=== PATIENT | female | born 2000 | race Caucasian/White ===

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

== ENCOUNTER 2018-01-10 00:46 | Outpatient (CLI) | payer MEDICAID ==
[2018-01-10 02:22] LABS: AMNISURE (ROM) NEGATIVE (NEGATIVE)
[2018-01-10 02:36] LABS: APPEARANCE,URINE TURBID; BILIRUBIN,URINE NEGATIVE (NEGATIVE); COLOR,URINE YELLOW; GLUCOSE, URINE 50 mg/dL (NEGATIVE); KETONES,URINE TRACE mg/dL (NEGATIVE); LEUKOCYTE ESTERASE,URINE NEGATIVE (NEGATIVE); NITRITE,URINE NEGATIVE (NEGATIVE); PROTEIN,URINE NEGATIVE (NEGATIVE); URINE SPECIFIC GRAVITY 1.032; UROBILINOGEN,URINE NEGATIVE mg/dL (<2.0)
[2018-01-10 02:55] LABS: URINE AMPHETAMINES SCREEN NEGATIVE; URINE BARBITURATES SCREEN NEGATIVE; URINE BENZODIAZEPINES SCREEN NEGATIVE; URINE COCAINE SCREEN NEGATIVE; URINE MARIJUANA (THC) SCREEN NEGATIVE; URINE METHADONE SCREEN NEGATIVE; URINE PHENCYCLIDINE SCREEN NEGATIVE
== END 2018-01-10 02:43 | disposition home or self-care (01) ==
LOC: LC 00:46
PROVIDERS: ATTEND Obstetrics & Gynecology
PROC: 4A1HXCZ Monitoring of Products of Conception, Cardiac Rate, External Approach (ICD-10-PCS; principal; 2018-01-10)
DX: Z36.89 Encounter for other specified antenatal screening (principal)
CPT/HCPCS: 80307; 81001; 84112

== ENCOUNTER 2018-04-11 10:16 | Outpatient (CLI) | payer MEDICAID ==
--- NOTE | 2018-04-11 11:20 | Non Stress Test Report ---
Non Stress Test Datetime Report Generated by CPN: 04/11/2018 11:19 DEMOGRAPHIC EGA NST: 36.4 INDICATION Indication for Study: Ordered by Provider MONITORING Monitor Explained: Monitor Explained; Test Explained; Patient Verbalized Understanding Time on Monitor: 04/11/2018 10:36 Time off Monitor: 04/11/2018 11:15 NST Duration: 39 NST INTERVENTIONS NST Interventions: PO Hydration Physician Notified NST: A. Bhagat CNM BABY A: [id number] BABY A Movement : Present Contraction Frequency : irritability FHR Baseline : 140 Accelerations : 15X15 Decelerations : None Variability : Moderate 6-25bpm NST Review: Meets Criteria for Reactive NST NST Review and Verified By : MARGIE Lopez Results: Reactive NST REPORT Report Trigger: Send Report
== END 2018-04-11 11:32 | disposition home or self-care (01) ==
LOC: LC 10:16
PROVIDERS: ATTEND Obstetrics & Gynecology
PROC: 4A1HXCZ Monitoring of Products of Conception, Cardiac Rate, External Approach (ICD-10-PCS; principal; 2018-04-11)
DX: O47.03 False labor before 37 completed weeks of gestation, third trimester (principal); Z3A.36 36 weeks gestation of pregnancy
CPT/HCPCS: 59025

== ENCOUNTER 2018-04-25 11:38 | Inpatient (IN) | payer MEDICAID ==
[2018-04-25 12:38] LABS: APPEARANCE,URINE SLIGHTLY-CLOUDY; BILIRUBIN,URINE NEGATIVE (NEGATIVE); COLOR,URINE YELLOW; GLUCOSE, URINE NEGATIVE (NEGATIVE); KETONES,URINE NEGATIVE (NEGATIVE); LEUKOCYTE ESTERASE,URINE MODERATE (NEGATIVE); NITRITE,URINE NEGATIVE (NEGATIVE); PROTEIN,URINE NEGATIVE (NEGATIVE); URINE SPECIFIC GRAVITY 1.009; UROBILINOGEN,URINE NEGATIVE mg/dL (<2.0)
[2018-04-25 13:22] LABS: URINE AMPHETAMINES SCREEN NEGATIVE; URINE BARBITURATES SCREEN NEGATIVE; URINE BENZODIAZEPINES SCREEN NEGATIVE; URINE COCAINE SCREEN NEGATIVE; URINE MARIJUANA (THC) SCREEN NEGATIVE; URINE METHADONE SCREEN NEGATIVE; URINE PHENCYCLIDINE SCREEN NEGATIVE
[2018-04-25] MEDS ORDERED: RINGERS SOLUTION,LACTATED 300 ML IV ONE (14:33)
[2018-04-25] MEDS ORDERED: OXYTOCIN/NORMAL SALINE 20 UNIT/1,000 ML RTUINJ IV PRN (14:33)
--- NOTE | 2018-04-25 15:11 | Admission Physical ---
Datetime Report Generated by CPN: 04/25/2018 15:10 CURRENT ADMISSION Hx Assessment: The History has been Reviewed and is Current Chief Complaint: Sent from OB Office for Evaluation and Treatment - Please Specify Indication for Induction: Oligohydramnios Admit Impression : Term, Intrauterine Admit Plan: Admit to Unit; Initiate Labor Induction Protocol ALLERGIES Medication Allergies: No Medication Allergies: No Known Allergies (08/07/2016) Latex: No Latex Allergies OBSTETRICAL HISTORY EDC: 05/05/2018 00:00 : 1 Para: 0 Term: 0 : 0 SAB: 0 IAB: 0 Ectopic: 0 Livin Cesareans: 0 VBACs: 0 Multiple Births: 0 Gestational Diabetes: No Rh Sensitization: No Incompetent Cervix: No MARTIN: No Infertility: No ART Treatment: No Uterine Anomaly: No IUGR: No Hx Previous C/S: No Macrosomia: No Hx Loss/Stillborn: No PIH: No Hx : No Placenta Previa/Abruption: No Depression/PP Depression: No PTL/PROM: No Post Hemorrhage: No Current Procedures: Ultrasound; NST Obstetrical History Comments: G1-Current SEE RECORDS Alcohol: No Marijuana : No Cocaine: No Other Illicit Drugs: No Cigarettes: Never Smoker. 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 Heart Disease: No Hosp/Surgery: No Autoimmune Disorder: No Anesthetic Complications: No Kidney Disease: No Abnormal Pap Smear: No Neuro/Epilepsy: No Psychiatric Disorders: No Other Medical Diseases: No Hepatitis/Liver Disease: No Significant Family History: No Varicosities/Phlebitis: No Trauma/Violence : No Thyroid Dysfunction: No INFECTIOUS HISTORY Gonorrhea: No Genital Herpes: No Chlamydia: Yes Tuberculosis: No Syphilis: No Hepatitis: No HIV/AIDS Exposure: No Rash or Viral Illness: No HPV: No Infectious History Comments: Hx Chlamydia 10/2017 PHYSICAL EXAM General: Normal Heart: Normal Lungs: Normal Extremities: Normal DTRs: Normal Vital Signs: Reviewed; Within Normal Limits MEMBRANES Membranes: Intact FETUS A EGA: 38.4 Monitoring: External US FHR- Baseline: 125 Variability: Moderate 6-25bpm Accelerations: 15X15 Decelerations: None FHR Category: Category I Presentation: Vertex Admit Comment: 17yo G1 @ 38w4d sent from office earlier today with new finding of oligohydramnios. Neg actim prom on arrival and disccused with Dr. Art who is the [employer] personnel and payroll technician today. Plan to admit and deliver per attending physician's order. Pt is O pos, RI, positive GBS, with significant hx of obesity (normal early 1hr, elevated 3rd trim 1hr with normal 3hr gtt) tobacco use and positive chlamydia at [facility] with neg LUÍS. No concerns today. Will provide lunch and then start induction of labor with whiting bulb. Pt. and asked questions and verbalized understanding. PLANS FOR LABOR AND DELIVERY Labor and Delivery: None Pain Management: Natural Feeding Preference: Breast Benefit of Breast Feed Discussed: Yes Circumcision: N/A INFORMED CONSENT Assignment: Wanda Desouza MD Signature: with User ID: [email or web address] : with User ID: [email or web address]
[2018-04-25] MEDS: RINGERS SOLUTION,LACTATED 1,000 ML IV PRN ×2 (15:30→22:08)
--- NOTE | 2018-04-25 16:00 | L&D Progress Notes ---
PROGRESS NOTES Datetime Report Generated by CPN: 04/25/2018 16:00 PROGRESS NOTE Impression Other: IUP @ 38w4d Procedures: Sterile Vag Exam Procedures- Other: cooks catheter placement Plan: Continue Present Management; Augmentation Informed Consent Obtained: Vaginal Delivery; Induction of Labor; Risks, Benefits and Alternatives Discussed Vital Signs : Reviewed; Within Normal Limits Comment: S: comfortable, no questions regarding plan of care at this time O:VSS, cervix as stated A:IUP @ 38w4d IOL secondary to oligo- cook's catheter inserted without difficulty, pt. tolerated well P: continue IOL, will start slow dose pit after shower and light snack. Dr. Art in house and agreeable to plan of care VAGINAL EXAM Dilatation: 2 Effacement: 70 Station: -1 Contractions: irreg MEMBRANES Membranes: Intact FETUS A FHR - Baseline: 120 Monitoring: External US Variability: Moderate 6-25bpm Accelerations: 15X15 Decelerations: None FHR Category: Category I Presentation: Vertex SIGNATURE SIGNATURE: [id number];[id number];[id number] SIGNATURE: [id number];[id number] SIGNATURE: [id number] Assignment: Wanda Desouza MD Signature: with User ID: [email or web address] : with User ID: [email or web address]
[2018-04-25] MEDS ORDERED: PROMETHAZINE HCL INJ 25 MG/1 ML VIAL ONE (16:46)
[2018-04-25] MEDS ORDERED: NALBUPHINE HCL INJ 10 MG/1 ML AMPULE ONE (16:46)
[2018-04-25] MEDS ORDERED: NALBUPHINE HCL INJ 10 MG/1 ML AMPULE IV ONE (16:50)
[2018-04-25] MEDS ORDERED: PROMETHAZINE HCL INJ 25 MG/1 ML VIAL IV ONE (16:50)
[2018-04-25] MEDS ORDERED: PENICILLIN G POTASSIUM 5,000,000 UNIT in DEXTROSE 5%-WATER 100 ML IV ONE (16:52)
[2018-04-25] MEDS ORDERED: OXYTOCIN/NORMAL SALINE 0 UNIT/0 ML RTUINJ ONE (17:14)
[2018-04-25] MEDS ORDERED: PENICILLIN G-K 5 MILLION UNIT VIAL ONE ×2 (17:15→20:57)
[2018-04-25 17:42] LABS: ABSOLUTE MONOCYTES (AUTO) 0.6 10^3/uL (0.1-1.4); ABSOLUTE NEUT (AUTO) 8.1 10^3/uL (1.7-8.2); BASOPHILS % (AUTO) 0.3 % (0-2); EOSINOPHILS % (AUTO) 0.4 % (0-6); HEMATOCRIT 23.6 % (36.0-47.0); LYMPHOCYTES % (AUTO) 10.2 % (13-45); MEAN CORPUSCULAR VOLUME 82 fl (80-97); MONOCYTES % (AUTO) 6.4 % (3-13); PLATELET COUNT 135 10^3/uL (150-450); RED BLOOD COUNT 2.89 10^6/uL (3.72-5.28); RED CELL DISTRIBUTION WIDTH 13.7 % (11.5-14.0); SEGMENTED NEUTROPHILS % (AUTO) 82.7 % (42-78); TOTAL CELLS COUNTED % (AUTO) 100 %; WHITE BLOOD COUNT 9.8 10^3/uL (4.0-10.5)
[2018-04-25 17:43] LABS: HEMOGLOBIN 7.8 g/dL (12.0-15.5)
[2018-04-25] MEDS ORDERED: MISOPROSTOL 0.2 MG TABLET ONE (20:44)
[2018-04-25] MEDS ORDERED: EPHEDRINE SULFATE INJ 50 MG/1 ML AMPULE ONE (20:45)
[2018-04-25] MEDS ORDERED: FENTANYL/BUPIVACAINE/NS/PF 300 MCG/150 ML RTUINJ EPI ONE (20:45)
[2018-04-25] MEDS ORDERED: OXYTOCIN/NORMAL SALINE 20 UNIT/1,000 ML RTUINJ ONE (20:45)
[2018-04-25] MEDS ORDERED: LIDOCAINE 1% INJ-PF (10 MG/ML) 30 ML SDV ONE (20:45)
[2018-04-25] MEDS ORDERED: BUPIVACAINE HCL 0.5 % INJ/PF 30 ML SDV ONE (20:46)
--- NOTE | 2018-04-25 21:30 | L&D Progress Notes ---
PROGRESS NOTES Datetime Report Generated by CPN: 04/25/2018 21:30 PROGRESS NOTE Impression: Normal Progression of Labor Procedures: Sterile Vag Exam Plan: Continue Present Management; Anticipate Vaginal Delivery Informed Consent Obtained: Vaginal Delivery; Induction of Labor Vital Signs : Reviewed Comment: Stefan's Catheter fell out a few minutes ago. Pt not checked yet and very uncomfortable (catheter usually falls out at approx 5 cm). Sitting on ball. Pt is requesting an epidural VAGINAL EXAM Dilatation: 5 CM Contractions: IRREGULAR FETUS A FHR - Baseline: 150s Monitoring: External US Variability: Moderate 6-25bpm Accelerations: Absent Decelerations: None FHR Category: Category I FHR Comments: REACTIVE STRIP A FEW MINUTES PRIOR : 38.4 FETUS C SIGNATURE: [id number];[id number];[id number] Signature: with User ID: [email or web address]
[2018-04-25] MEDS: PENICILLIN G POTASSIUM 2,500,000 UNIT in DEXTROSE 5%-WATER 50 ML IV SCH (22:08)
--- NOTE | 2018-04-25 22:27 | L&D Progress Notes ---
PROGRESS NOTES Datetime Report Generated by CPN: 04/25/2018 22:27 PROGRESS NOTE Impression: Normal Progression of Labor Procedures: Sterile Speculum Exam Plan: Continue Present Management; Anticipate Vaginal Delivery Informed Consent Obtained: Vaginal Delivery Vital Signs : Reviewed Vital Signs Comments: Temp 99.4 VAGINAL EXAM Contractions: 2-3 min FETUS A FHR - Baseline: 160s Monitoring: External US Accelerations: 15X15 Decelerations: None : 38.4 FETUS C SIGNATURE: [id number];[id number];[id number] Signature: with User ID: [email or web address]
[2018-04-26] MEDS ORDERED: PENICILLIN G-K 5 MILLION UNIT VIAL ONE (01:35)
[2018-04-26] MEDS ORDERED: BUPIVACAINE HCL 0.5 % INJ/PF 30 ML SDV ONE (02:09)
[2018-04-26] MEDS ORDERED: AZITHROMYCIN INJ 500 MG VIAL IV ONE ×2 (04:06→04:32)
[2018-04-26] MEDS ORDERED: ACETAMINOPHEN 325 MG TABLET ONE (04:06)
[2018-04-26] MEDS ORDERED: ACETAMINOPHEN 325 MG TABLET PO ONE (04:32)
[2018-04-26] MEDS ORDERED: METHYLERGONOVINE MALEATE INJ/PF 0.2 MG/1 ML AMPULE ONE (05:41)
[2018-04-26] MEDS ORDERED: MEASLES,MUMPS&RUBELLA VACC/PF 0.5 ML VIAL SUBCUT PRN (06:24)
[2018-04-26] MEDS ORDERED: OXYTOCIN/NORMAL SALINE 20 UNIT/1,000 ML RTUINJ IV PRN (06:24)
[2018-04-26] MEDS ORDERED: ZOLPIDEM TARTRATE 5 MG TABLET PO PRN (06:24)
[2018-04-26] MEDS ORDERED: DIBUCAINE 1% OINTMENT 28 GM TP PRN (06:24)
[2018-04-26] MEDS ORDERED: ACETAMINOPHEN WITH CODEINE #3 TABLET PO PRN ×2 (06:24)
[2018-04-26] MEDS ORDERED: BENZOCAINE/MENTHOL AEROSOL SPRAY 56 ML TOP PRN (06:24)
[2018-04-26] MEDS ORDERED: DIPH/PERTUSS(ACELL)/TETANUS VAC/PF 0.5 ML SYR (>=10YO) IM PRN (06:24)
[2018-04-26] MEDS ORDERED: IBUPROFEN 800 MG TABLET PO ONE (06:45)
[2018-04-26] MEDS: PENICILLIN G POTASSIUM 2,500,000 UNIT in DEXTROSE 5%-WATER 50 ML IV SCH ×2 (07:54→07:55)
--- NOTE | 2018-04-26 09:07 | PDOC PROGRESS REPORT ---
Subjective-OB Progress Note for:: 04/26/18 Subjective: Just got back in room from labor and delivery, OOB to BR, tired but feeling good Physical Exam (OB) Vital Signs: Temp Pulse Resp BP Pulse Ox 99.9 F 126 H 22 138/86 H 98 04/26/18 08:04 04/26/18 08:04 04/26/18 08:04 04/26/18 08:04 04/26/18 08:04 Intake & Output 04/25/18 04/26/18 04/27/18 06:59 06:59 06:59 Intake Total 829 1150 Balance 829 1150 Weight 99.6 kg - Lochia Lochia Amount: Scant < 10 ml Lochia Color: Rubra/Red - Abdomen Description: Tender, Soft, Round Hernia Present: No Fundal Description: Firm, Midline Fundal Height: u/u - u/2 Objective-Diagnostic Laboratory: 04/25/18 17:16 04/25/18 04/25/18 04/25/18 12:15 17:16 17:16 WBC 9.8 RBC 2.89 L Hgb 7.8 L Hct 23.6 L MCV 82 MCH 27.0 MCHC 33.0 RDW 13.7 Plt Count 135 L Seg Neutrophils % 82.7 H Lymphocytes % 10.2 L Monocytes % 6.4 Eosinophils % 0.4 Basophils % 0.3 Absolute Neutrophils 8.1 Absolute Lymphocytes 1.0 Absolute Monocytes 0.6 Absolute Eosinophils 0.0 Absolute Basophils 0.0 Carbonic Acid HCO3/H2CO3 Ratio ABG pH ABG pCO2 ABG pO2 ABG HCO3 ABG O2 Saturation ABG Base Excess FiO2 Urine Color YELLOW Urine Appearance SLIGHTLY-CLOUDY Urine pH 6.0 Ur Specific [place] 1.009 Urine Protein NEGATIVE Urine Glucose (UA) NEGATIVE Urine Ketones NEGATIVE Urine Blood NEGATIVE Urine Nitrite NEGATIVE Ur Leukocyte Esterase MODERATE H Blood Type O POSITIVE Antibody Screen NEGATIVE 04/26/18 05:39 WBC RBC Hgb Hct MCV MCH MCHC RDW Plt Count Seg Neutrophils % Lymphocytes % Monocytes % Eosinophils % Basophils % Absolute Neutrophils Absolute Lymphocytes Absolute Monocytes Absolute Eosinophils Absolute Basophils Carbonic Acid Cancelled HCO3/H2CO3 Ratio Cancelled ABG pH Cancelled ABG pCO2 Cancelled ABG pO2 Cancelled ABG HCO3 Cancelled ABG O2 Saturation Cancelled ABG Base Excess Cancelled FiO2 Cancelled Urine Color Urine Appearance Urine pH Ur Specific [place] Urine Protein Urine Glucose (UA) Urine Ketones Urine Blood Urine Nitrite Ur Leukocyte Esterase Blood Type Antibody Screen Assessment and Plan(PN) - Assessment and Plan (1) Vaginal delivery Is this a current diagnosis for this admission?: Yes (2) Encounter for induction of labor Is this a current diagnosis for this admission?: Yes (3) Oligohydramnios antepartum Qualifiers: Fetus number: single or unspecified fetus Qualified Code(s): O41.00X0 - Oligohydramnios, unspecified trimester, not applicable or unspecified Is this a current diagnosis for this admission?: Yes - Time Spent with Patient Time with patient: Less than 15 minutes Medications reviewed and adjusted accordingly: Yes - Disposition Anticipated Discharge: Home Within: within 48 hours
[2018-04-26] MEDS: DOCUSATE SODIUM 100 MG CAPSULE PO SCH ×2 (09:43→17:37)
[2018-04-26] MEDS: SENNOSIDES/DOCUSATE 8.6-50 MG 1 EACH TABLET PO SCH (09:43)
[2018-04-26] MEDS: PRENATAL VITAMIN W DHA CAPSULE PO SCH (09:43)
[2018-04-26] MEDS: FERROUS SULFATE 325 MG TABLET PO SCH ×2 (09:43→17:37)
[2018-04-26] MEDS: IBUPROFEN 800 MG TABLET PO SCH ×2 (13:50→21:47)
[2018-04-27] MEDS: IBUPROFEN 800 MG TABLET PO SCH ×3 (05:33→21:07)
[2018-04-27 07:47] LABS: HEMATOCRIT 24.4 % (36.0-47.0); HEMOGLOBIN 8.1 g/dL (12.0-15.5); MEAN CORPUSCULAR HEMOGLOBIN 27.1 pg (27.0-33.4); MEAN CORPUSCULAR HGB CONC 33.4 g/dL (32.0-36.0); MEAN CORPUSCULAR VOLUME 81 fl (80-97); PLATELET COUNT 139 10^3/uL (150-450); RED BLOOD COUNT 3.01 10^6/uL (3.72-5.28); WHITE BLOOD COUNT 15.9 10^3/uL (4.0-10.5)
--- NOTE | 2018-04-27 08:35 | Delivery Summary ---
Del Sum A-C Datetime Report Generated by CPN: 04/27/2018 08:35 DELIVERY PERSONNEL DELIVERY PERSONNEL: [id number] Delivery Doctor:: Wanda Desouza MD Labor and Delivery Nurse:: Esme Del Angel RNrestaurant associate Nurse:: Barb Chaparro RN Nursery Nurse:: Renae Urrutia RN Nursery Nurse:: Cynthia Mcdonald RN Relief Master/LIQUEFACTION PLANT OPERATOR: Ingrid Walker, ST Relief Master/LIQUEFACTION PLANT OPERATOR: Tana Parlor, ST MATERNAL INFORMATION Delivery Anesthesia: Epidural Medications After Delivery: Pitocin Drip 20 Units/1000ml NSS; Methergine 0.2mg IM; Cytotec 1000mcg Per Rectum/Vagina Estimated Blood Loss (ml): 500 ml Maternal Complications: None Provider Comments: of a viable female @0535 with OA presentation; shoulder dystocia present. Juan and suprapubic pressure employed which did not relieve the dystocia. Right mediolateral episiotomy given and hand placed inside of the vagina. The left arm was grasped and removed, which relieved the dystocia. APGARS 3@1, 7@5; weight 9#14oz. LABOR SUMMARY EDC: 05/05/2018 00:00 No. Babies in Womb: 1 Attempted: No Labor Anesthesia: Epidural LABOR INFORMATION Reason for Induction: Oligohydramnios Onset of Labor: 04/25/2018 22:48 Complete Dilatation: 04/26/2018 05:04 Cervical Ripening Agents: Azevedo Balloon Oxytocin: Induction Group B Beta Strep: positive Antibiotics # of Doses: 3 Antibiotics Time of Last Dose: 0130 Name of Antibiotic Given: PCN Steroids Given: None Reason Steroids Not Administered: Not Applicable MEMBRANES Membranes Rupture Method: Spontaneous Rupture of Membranes: 04/25/2018 22:48 Length of Rupture (hr): 6.78 Amniotic Fluid Color: Clear Amniotic Fluid Amount: Small Amniotic Fluid Odor: Normal STAGES OF LABOR Stage 1 hr: 6 Stage 1 min: 16 Stage 2 hr: 0 Stage 2 min: 31 Stage 3 hr: 0 Stage 3 min: 5 Total Time in Labor hr: 6 Total Time in Labor min: 52 VAGINAL DELIVERY Episiotomy: Right Mediolateral Laceration #1: None Laceration Extension #1: N/A Laceration Repair: Yes Laceration Repair Note: Second degree mediolateral episiotomy given, no extension--repaired with 3-0 vicryl Sponge Count Correct: Yes Sharps Count Correct: Yes CSECTION DELIVERY Primary Indication: N/A Secondary Indication: N/A CSection Incidence: N/A Labor: N/A Elective: N/A CSection Incision: N/A BABY A INFORMATION Infant Delivery Date/Time: 04/26/2018 05:35 Method of Delivery: Vaginal Method of Delivery: Vaginal Born in Route : No : N/A Forceps: N/A Vacuum Extraction: N/A Shoulder Dystocia : Yes SHOULDER DYSTOCIA BABY A Delivery of Head: 04/26/2018 05:31 Time Head to Delivery : 4.0 1st Intervention to Resolve: McRobert's Maneuver 2nd Intervention to Resolve: Gentle Attempt at Traction, Assisted by Maternal Expulsive Efforts 3rd Intervention to Resolve: Suprapubic Pressure 4th Intervention to Resolve: Episiotomy Verify NO Fundal Pressure: No Fundal Pressure Applied Arm Under Symphisis at Del: Left PRESENTATION/POSITION BABY A Presentation: Cephalic Cephalic Presentation: Vertex Vertex Position: Left Occipital Anterior Breech Presentation: N/A PLACENTA INFORMATION BABY A Placenta Delivery Time : 04/26/2018 05:40 Placenta Method of Delivery: Spontaneous Placenta Method of Delivery: Spontaneous Placenta Status: Delivered SCORES BABY A Heart Rate 1 min: >100 bpm Resp Effort 1 min: Slow, Irregular Reflex Irritability 1 min: No Response Muscle Tone 1 min: Flaccid Color 1 min: Blue/Pale Resuscitation Effort 1 min: Tactile Stimulation; PPV/NCPAP SCORE 1 MIN: 3 Heart Rate 5 min: >100 bpm Resp Effort 5 min: [place] Reflex Irritability 5 min: [place] Muscle Tone 5 min: Some Flexion of Extremities Color 5 min: Body [place], Extremities Blue Resuscitation Effort 5 min: Tactile Stimulation SCORE 5 MIN: 7 INFANT INFORMATION BABY A Gestational Age at Delivery: 38.5 Gestational Status: Early Term- 37- 38.6 Weeks Infant Outcome : Liveborn Infant Condition : Stable Infant Sex: Female Sex: Female IDENTIFICATION BABY A Infant Verification Date/Time: 04/26/2018 06:12 ID Band Number: [id number] Mother's Name Verified: Yes Infant RN Verifying Infant: Cole Del Angel RN Additional Verifying Personnel: Mckenzie Muir RN WEIGHT/LENGTH BABY A Birthweight (gm): 4470 Infant Weight (lb): 9 Infant Weight (oz): 14 Length (in): 22.00 Infant Length (cm): 55.88 CORD INFORMATION BABY A No. Cord Vessels: 3 Nuchal Cord : N/A Cord Blood Taken: Yes-For Eval (Mom's Blood Type - or O+) Infant Suction: Mouth; Nose ASSESSMENT BABY A Infant Complications: Multiple Late Decels; Oligohydramnios Physical Findings at Delivery: Molding of the Head; Bruising Respirations: Tachypnea Skin to Skin: No Weight Caller/ALS Called : No Infant Care By: Julia Urrutia RN/Iraj Mcdonald RN Transferred To: Nursery BABY B INFORMATION : N/A SIGNATURES Signature: with User ID: [email or web address]
[2018-04-27] MEDS: PRENATAL VITAMIN W DHA CAPSULE PO SCH (10:01)
[2018-04-27] MEDS: SENNOSIDES/DOCUSATE 8.6-50 MG 1 EACH TABLET PO SCH (10:01)
[2018-04-27] MEDS: DOCUSATE SODIUM 100 MG CAPSULE PO SCH ×2 (10:01→18:01)
[2018-04-27] MEDS: FERROUS SULFATE 325 MG TABLET PO SCH ×2 (10:01→18:01)
--- NOTE | 2018-04-27 10:13 | PDOC PROGRESS REPORT ---
Subjective-OB Progress Note for:: 04/27/18 Subjective: PP Day #1, doing well, , hx of shoulder dystocia with her delivery. O+, Rubella Immune. Physical Exam (OB) Vital Signs: Temp Pulse Resp BP Pulse Ox 97.6 F 76 20 143/84 H 97 04/27/18 08:06 04/27/18 08:06 04/27/18 08:06 04/27/18 08:06 04/27/18 08:06 Intake & Output 04/26/18 04/27/18 04/28/18 06:59 06:59 06:59 Intake Total 829 1450 Balance 829 1450 Weight 99.6 kg - General General Appearance: Appears well, Alert In distress: None - PIH/Pre-Eclampsia Headache: Absent Epigastric Pain: No Visual Changes: No - Lochia Lochia Amount: Scant < 10 ml Lochia Color: Rubra/Red - Abdomen Description: Soft, Round Hernia Present: No Fundal Description: Firm, Midline Fundal Height: u/u - u/2 - Respiratory Respiratory Status: No respiratory distress - Abdominal Distension: No distension - Genitourinary Genitourinary Note: voiding - Extremities Upper extremity: Normal inspection Lower extremities: Normal inspection - Neurological Cognition: Normal Orientation: AAOx4 - Psychological Associated symptoms: Normal affect, Normal mood - Skin Skin Temperature: Warm Skin Moisture: Dry Objective-Diagnostic Laboratory: 04/27/18 07:09 04/27/18 07:09 WBC 15.9 H RBC 3.01 L Hgb 8.1 L Hct 24.4 L MCV 81 MCH 27.1 MCHC 33.4 RDW 14.0 Plt Count 139 L Assessment and Plan(PN) - Assessment and Plan (1) Shoulder dystocia during labor and delivery, delivered Is this a current diagnosis for this admission?: Yes (2) Anemia, Is this a current diagnosis for this admission?: Yes (3) Encounter for induction of labor Is this a current diagnosis for this admission?: Yes (4) Oligohydramnios antepartum Qualifiers: Fetus number: single or unspecified fetus Qualified Code(s): O41.00X0 - Oligohydramnios, unspecified trimester, not applicable or unspecified Is this a current diagnosis for this admission?: Yes (5) Qualifiers: Weeks of gestation: unspecified Qualified Code(s): Z34.90 - Encounter for supervision of normal , unspecified, unspecified trimester Is this a current diagnosis for this admission?: Yes (6) Vaginal delivery Is this a current diagnosis for this admission?: Yes - Time Spent with Patient Time with patient: Less than 15 minutes Medications reviewed and adjusted accordingly: Yes - Disposition Anticipated Discharge: Home Within: within 24 hours
[2018-04-28] MEDS: IBUPROFEN 800 MG TABLET PO SCH (05:20)
[2018-04-28] MEDS: PRENATAL VITAMIN W DHA CAPSULE PO SCH (10:28)
[2018-04-28] MEDS: SENNOSIDES/DOCUSATE 8.6-50 MG 1 EACH TABLET PO SCH (10:29)
[2018-04-28] MEDS: DOCUSATE SODIUM 100 MG CAPSULE PO SCH (10:29)
[2018-04-28] MEDS: FERROUS SULFATE 325 MG TABLET PO SCH (10:29)
[2018-04-28 10:43] VITALS: BP 113/59
--- NOTE | 2018-04-28 10:54 | PDOC PROGRESS REPORT ---
Subjective-OB Progress Note for:: 04/28/18 Subjective: Ready to go home. Physical Exam (OB) Vital Signs: Temp Pulse Resp BP Pulse Ox 97.6 F 76 20 113/59 L 97 04/28/18 08:56 04/28/18 08:56 04/28/18 08:56 04/28/18 07:30 04/28/18 08:56 Intake & Output 04/27/18 04/28/18 04/29/18 06:59 06:59 06:59 Intake Total 1450 400 380 Balance 1450 400 380 - PIH/Pre-Eclampsia DTR's: 2 + Clonus: Negative Headache: Absent Epigastric Pain: No Visual Changes: No - Lochia Lochia Amount: Small 10-25 ml Lochia Color: Rubra/Red - Abdomen Description: Soft Hernia Present: No Bowel Sounds: Normoactive Flatus Presence: Present Stool: Yes Fundal Description: Firm, Midline Fundal Height: u/u - u/2 Objective-Diagnostic Laboratory: 04/27/18 07:09 Assessment and Plan(PN) - Time Spent with Patient Medications reviewed and adjusted accordingly: Yes - Disposition Anticipated Discharge: Home
--- NOTE | 2018-04-28 11:02 | PDOC DISCHARGE SUMMARY ---
Final Diagnosis Discharge Date: 04/28/18 - Final Diagnosis (1) Anemia, Is this a current diagnosis for this admission?: Yes (2) Encounter for induction of labor Is this a current diagnosis for this admission?: Yes (3) Oligohydramnios antepartum Is this a current diagnosis for this admission?: Yes (4) Positive GBS test Is this a current diagnosis for this admission?: Yes (5) Is this a current diagnosis for this admission?: Yes (6) Shoulder dystocia during labor and delivery, delivered Is this a current diagnosis for this admission?: Yes (7) Vaginal delivery Is this a current diagnosis for this admission?: Yes Discharge Data - Discharge Medication Prescriptions: Ferrous Sulfate [Feosol 325 mg Tablet] 325 mg PO BID #60 tablet Home Medications: Prenat 115/Iron Fum/Folic/Dss [ 19 Tablet] 1 tab PO DAILY 01/10/18 Ferrous Sulfate [Feosol 325 mg Tablet] 325 mg PO BID #60 tablet 04/28/18 Gestational Age: 38.5 wks Reason(s) for Admission: Induction of Labor Procedures: Ultrasound Intrapartum Procedure(s): Spontaneous Vaginal Delivery Complication(s): Laceration-Vaginal Laceration-Degree: 2nd - [place] Data Baby 1 Female at 1 minute: 3 at 5 minutes: 7 Weight: 4.479 kg Home with Mother: Yes Complications: Yes - Shoulder dystocia, arm involvement - Diagnosis Test Laboratory: Temp Pulse Resp BP Pulse Ox 97.6 F 76 20 113/59 L 97 04/28/18 08:56 04/28/18 08:56 04/28/18 08:56 04/28/18 07:30 04/28/18 08:56 04/25/18 04/25/18 04/27/18 12:15 17:16 07:09 RBC 2.89 L 3.01 L Hgb 7.8 L 8.1 L Hct 23.6 L 24.4 L Urine Opiates Screen NEGATIVE - Discharge information/Instructions Discharge Activity: Activity As Tolerated, Balance Activity w/Rest, Pelvic Rest , Slowly Increase Activity, No tub bath, Walk Frequently Discharge Diet: Regular Disposition: HOME, SELF-CARE Follow up with: [facility] in: 4, Weeks
[2018-04-28 11:38] LABS: MEAN CORPUSCULAR HEMOGLOBIN 26.4 pg (27.0-33.4); MEAN CORPUSCULAR VOLUME 80 fl (80-97); PLATELET COUNT 164 10^3/uL (150-450); RED BLOOD COUNT 2.99 10^6/uL (3.72-5.28); RED CELL DISTRIBUTION WIDTH 14.6 % (11.5-14.0); WHITE BLOOD COUNT 12.4 10^3/uL (4.0-10.5)
[2018-04-28 11:42] LABS: HEMOGLOBIN 7.9 g/dL (12.0-15.5)
== END 2018-04-28 13:02 | disposition home or self-care (01) | DRG 806 ==
LOC: LC 11:38 → LR 14:41 → 2S 04-26 07:55
PROVIDERS: ADMIT Obstetrics & Gynecology; ATTEND Obstetrics & Gynecology
PROC: 4A1HXCZ Monitoring of Products of Conception, Cardiac Rate, External Approach (ICD-10-PCS; 2018-04-25)
PROC: 0U7C7ZZ Dilation of Cervix, Via Natural or Artificial Opening (ICD-10-PCS; 2018-04-25)
PROC: 10E0XZZ Delivery of Products of Conception, External Approach (ICD-10-PCS; principal; 2018-04-26)
PROC: 0W8NXZZ Division of Female Perineum, External Approach (ICD-10-PCS; 2018-04-26)
PROC: 3E02340 Introduction of Influenza Vaccine into Muscle, Percutaneous Approach (ICD-10-PCS; 2018-04-28)
PROC: 3E0234Z Introduction of Serum, Toxoid and Vaccine into Muscle, Percutaneous Approach (ICD-10-PCS; 2018-04-28)
DX: O66.0 Obstructed labor due to shoulder dystocia (principal); O41.03X0 Oligohydramnios, third trimester, not applicable or unspecified; O76 Abnormality in fetal heart rate and rhythm complicating labor and delivery; O99.824 Streptococcus B carrier state complicating childbirth; O99.214 Obesity complicating childbirth; E66.9 Obesity, unspecified; O99.02 Anemia complicating childbirth; D64.9 Anemia, unspecified; Z23 Encounter for immunization; Z37.0 Single live birth; Z3A.38 38 weeks gestation of pregnancy; Z86.19 Personal history of other infectious and parasitic diseases
CPT/HCPCS: 36415; 80307; 81005; 84112; 85025; 85027; 86592; 86850; 86900; 86901; 88307; 90471; 90686; 90715; 94760; C1726; G0008; J0456; J2210; J2300; J2540; J2550; J2590; J3010; J3490

== ENCOUNTER 2018-07-28 13:40 | Emergency (ER) | payer SELFPAY ==
--- NOTE | 2018-07-28 15:23 | ER Document Report ---
ED Medical Screen (RME) - General Chief Complaint: Abdominal Pain Stated Complaint: ABDOMINAL PAIN Time Seen by Provider: 07/28/18 15:22 Mode of Arrival: Ambulatory Information source: Patient Notes: 17-year-old female presents to the emergency room with left flank and left lower quadrant tenderness for the past 2 days. Patient states it hurts when she stands. She states that her on the drive over when she go over a bump. She denies any blood in the urine. She denies any fever. She is had no nausea or vomiting. Her last normal menstrual period was June 25. She has had no surgeries. She is on no medicines and has no allergies. TRAVEL OUTSIDE OF THE [place] IN LAST 30 DAYS: No - Related Data Allergies/Adverse Reactions: No Known Allergies Allergy (Verified 07/28/18 13:57) Past Medical History Pulmonary Medical History: Reports: Hx Asthma - Sports induces asthma Renal/ Medical History: Denies: Hx Peritoneal Dialysis GI Medical History: Reports: Hx Gastroesophageal Reflux Disease - Immunizations Immunizations up to date: Yes Hx Diphtheria, Pertussis, Tetanus Vaccination: Yes Physical Exam - Vital signs Vitals: Temp Pulse Resp BP Pulse Ox 98.5 F 96 H 14 123/75 98 07/28/18 14:11 07/28/18 14:11 07/28/18 14:11 07/28/18 14:11 07/28/18 14:11 Course - Vital Signs Vital signs: Temp Pulse Resp BP Pulse Ox 98.5 F 96 H 14 123/75 98 07/28/18 14:11 07/28/18 14:11 07/28/18 14:11 07/28/18 14:11 07/28/18 14:11 Doctor's Discharge - Discharge Referrals: ELÍAS RANDOLPH MD [Primary Care Provider] - Follow up as needed
[2018-07-28 15:59] LABS: APPEARANCE,URINE CLEAR; BILIRUBIN,URINE NEGATIVE (NEGATIVE); COLOR,URINE COLORLESS; GLUCOSE, URINE NEGATIVE (NEGATIVE); KETONES,URINE NEGATIVE (NEGATIVE); LEUKOCYTE ESTERASE,URINE NEGATIVE (NEGATIVE); NITRITE,URINE NEGATIVE (NEGATIVE); PROTEIN,URINE NEGATIVE (NEGATIVE); URINE SPECIFIC GRAVITY 1.003; UROBILINOGEN,URINE NEGATIVE mg/dL (<2.0)
[2018-07-28 16:04] LABS: ABSOLUTE EOSINOPHILS # (AUTO) 0.1 10^3/uL (0.0-0.6); ABSOLUTE LYMPHOCYTES (AUTO) 1.7 10^3/uL (0.5-4.7); ABSOLUTE MONOCYTES (AUTO) 0.7 10^3/uL (0.1-1.4); ABSOLUTE NEUT (AUTO) 7.2 10^3/uL (1.7-8.2); BASOPHILS % (AUTO) 0.3 % (0-2); EOSINOPHILS % (AUTO) 1.2 % (0-6); HEMATOCRIT 38.7 % (36.0-47.0); HEMOGLOBIN 12.5 g/dL (12.0-15.5); LYMPHOCYTES % (AUTO) 17.7 % (13-45); MEAN CORPUSCULAR HEMOGLOBIN 25.8 pg (27.0-33.4); MEAN CORPUSCULAR HGB CONC 32.3 g/dL (32.0-36.0); MEAN CORPUSCULAR VOLUME 80 fl (80-97); MONOCYTES % (AUTO) 6.7 % (3-13); PLATELET COUNT 320 10^3/uL (150-450); RED BLOOD COUNT 4.85 10^6/uL (3.72-5.28); RED CELL DISTRIBUTION WIDTH 15.4 % (11.5-14.0); SEGMENTED NEUTROPHILS % (AUTO) 74.1 % (42-78); TOTAL CELLS COUNTED % (AUTO) 100 %; WHITE BLOOD COUNT 9.7 10^3/uL (4.0-10.5)
[2018-07-28 16:19] LABS: ALANINE AMINOTRANSFERASE 49 U/L (5-35); ALBUMIN 5.2 g/dL (3.7-5.6); ALKALINE PHOSPHATASE 70 U/L (50-135); ANION GAP 11 (5-19); ASPARTATE AMINO TRANSFERASE 40 U/L (5-30); BILIRUBIN,DIRECT 0.3 mg/dL (0.0-0.4); BILIRUBIN,TOTAL 0.4 mg/dL (0.2-1.3); BLOOD UREA NITROGEN 14 mg/dL (7-20); CALCIUM 10.2 mg/dL (8.4-10.2); CARBON DIOXIDE 26 mmol/L (22-30); CHLORIDE 104 mmol/L (98-107); GLUCOSE 92 mg/dL (75-110); POTASSIUM 4.3 mmol/L (3.6-5.0); SODIUM 141.4 mmol/L (137-145); TOTAL PROTEIN 8.2 g/dL (6.3-8.2)
[2018-07-28] MEDS ORDERED: IBUPROFEN 600 MG TABLET PO ONE (18:25)
--- NOTE | 2018-07-28 18:28 | ER Document Report ---
ED General - General Chief Complaint: Abdominal Pain Stated Complaint: ABDOMINAL PAIN Time Seen by Provider: 07/28/18 15:22 Mode of Arrival: Ambulatory Information source: Patient, Relative, [facility] Records Notes: 17-year-old female with asthma, reflux presents with complaint of left lower quadrant abdominal pain that started 3 days prior to arrival. Patient describes the pain as sharp, stabbing and constant. Pain is worse with movement, coughing, laughing. She denies prior similar symptoms, trauma to the abdomen, nausea, vomiting, dysuria, hematuria, history of kidney stones. Patient's last bowel movement was this morning. She denies any black or bloody stools. She does state that she took 2 laxatives thinking that the pain was due to gas. Patient has 3 months . She reports a healthy without complications. She has not been sexually active since giving . She denies any vaginal discharge. Her last period was June 25, 2018. TRAVEL OUTSIDE OF THE [place] IN LAST 30 DAYS: No - HPI Onset: Other Onset/Duration: Gradual, Constant, Persistent, Worse Quality of pain: Stabbing Severity: Moderate Associated symptoms: denies: Chest pain, Diarrhea, Fever, Nausea, Vomiting, Shortness of breath Exacerbated by: Supine, Movement, Walking Relieved by: Denies Similar symptoms previously: No Recently seen / treated by doctor: No - Related Data Allergies/Adverse Reactions: No Known Allergies Allergy (Verified 07/28/18 13:57) Past Medical History - General Information source: Patient - Social History Smoking Status: Never Smoker Chew tobacco use (# tins/day): No Frequency of alcohol use: None Drug Abuse: None Lives with: Family Family History: Arthritis, CVA, DM, Malignancy, Thyroid Disfunction Patient has suicidal ideation: No Patient has homicidal ideation: No Pulmonary Medical History: Reports: Hx Asthma - Sports induces asthma Renal/ Medical History: Denies: Hx Peritoneal Dialysis GI Medical History: Reports: Hx Gastroesophageal Reflux Disease - Immunizations Immunizations up to date: Yes Hx Diphtheria, Pertussis, Tetanus Vaccination: Yes Review of Systems - Review of Systems Notes: REVIEW OF SYSTEMS: CONSTITUTIONAL : Denies fever, chills, or sweats. Denies recent illness. Denies weight loss, recent hospitalizations. EENT: Denies visual changes, eye pain. Denies sore throat, oral lesions, difficulty swallowing. CARDIOVASCULAR: Denies chest pain. Denies palpitations. Denies lower extremity edema. RESPIRATORY: Denies cough. Denies shortness of breath, wheezing. GASTROINTESTINAL: Denies distention. Denies nausea, vomiting, or diarrhea. Denies blood in vomitus, stools, or per rectum. Denies black, tarry stools. Denies constipation. GENITOURINARY: Denies difficulty urinating, painful urination, frequency, blood in urine, or vaginal discharge. MUSCULOSKELETAL: Denies back or neck pain or stiffness. Denies joint pain or swelling. SKIN: Denies rash, lesions or sores. HEMATOLOGIC : Denies easy bruising or bleeding. LYMPHATIC: Denies swollen glands. NEUROLOGICAL: Denies confusion or altered mental status. Denies loss of consciousness. Denies dizziness or lightheadedness. Denies headache. Denies weakness or paralysis. Denies problems difficulty with ambulation, slurred speech. Denies sensory loss, numbness, or tingling. Denies seizures. PSYCHIATRIC: Denies anxiety or stress. Denies depression, suicidal ideation, or homicidal ideation. Denies visual or auditory hallucinations. Physical Exam - Vital signs Vitals: Temp Pulse Resp BP Pulse Ox 98.5 F 96 H 14 123/75 98 07/28/18 14:11 07/28/18 14:11 07/28/18 14:11 07/28/18 14:11 07/28/18 14:11 - Notes Notes: PHYSICAL EXAMINATION: GENERAL: Well-appearing, well-nourished and in no acute distress. HEAD: Atraumatic, normocephalic. EYES: Pupils equal round and reactive to light, extraocular movements intact, conjunctiva are normal. ENT: Nares patent, oropharynx clear without exudates. Moist mucous membranes. NECK: Normal range of motion, supple without lymphadenopathy LUNGS: Breath sounds clear to auscultation bilaterally and equal. No wheezes rales or rhonchi. HEART: Regular rate and rhythm without murmurs ABDOMEN: Tenderness with palpation to the left middle quadrant. No guarding, no rebound. No masses appreciated. Female : deferred Musculoskeletal: Normal range of motion, no pitting or edema. No cyanosis. NEUROLOGICAL: Cranial nerves grossly intact. Normal speech, normal gait. Normal sensory, motor exams PSYCH: Normal mood, normal affect. SKIN: Warm, Dry, normal turgor, no rashes or lesions noted. Course - Re-evaluation Re-evalutation: Laboratory 07/28/18 07/28/18 07/28/18 15:34 15:34 15:34 WBC 9.7 RBC 4.85 Hgb 12.5 Hct 38.7 MCV 80 MCH 25.8 L MCHC 32.3 RDW 15.4 H Plt Count 320 Seg Neutrophils % 74.1 Lymphocytes % 17.7 Monocytes % 6.7 Eosinophils % 1.2 Basophils % 0.3 Absolute Neutrophils 7.2 Absolute Lymphocytes 1.7 Absolute Monocytes 0.7 Absolute Eosinophils 0.1 Absolute Basophils 0.0 Sodium 141.4 Potassium 4.3 Chloride 104 Carbon Dioxide 26 Anion Gap 11 BUN 14 Creatinine 0.72 Est GFR ( Amer) > 60 Est GFR (Non-Af Amer) > 60 Glucose 92 Calcium 10.2 Total Bilirubin 0.4 Direct Bilirubin 0.3 Neonat Total Bilirubin Not Reportable Neonat Direct Bilirubin Not Reportable Neonat Indirect Bili Not Reportable AST 40 H ALT 49 H Alkaline Phosphatase 70 Total Protein 8.2 Albumin 5.2 Urine Color COLORLESS Urine Appearance CLEAR Urine pH 6.0 Ur Specific [place] 1.003 Urine Protein NEGATIVE Urine Glucose (UA) NEGATIVE Urine Ketones NEGATIVE Urine Blood NEGATIVE Urine Nitrite NEGATIVE Urine Bilirubin NEGATIVE Urine Urobilinogen NEGATIVE Ur Leukocyte Esterase NEGATIVE Urine WBC (Auto) 1 Urine RBC (Auto) 0 Urine Bacteria (Auto) TRACE Squamous Epi Cells Auto 2 Urine Mucus (Auto) RARE Urine Ascorbic Acid NEGATIVE Urine HCG, Qual NEGATIVE Acute Abdomen Series 07/28/18 18:25 IMPRESSION: NO RADIOGRAPHIC EVIDENCE FOR ACUTE ABDOMINAL DISEASE. Transvaginal US 07/28/18 19:36 IMPRESSION: No evidence for ovarian torsion. Temp Pulse Resp BP Pulse Ox 98.5 F 68 16 112/73 100 07/28/18 14:11 07/28/18 22:00 07/28/18 22:00 07/28/18 22:00 07/28/18 22:00 17-year-old female with no reported past medical history presents with complaint of right mid abdominal pain and low back pain that have been ongoing for several days. Vital signs stable upon arrival and patient is afebrile, normotensive not hypoxic or tachycardic. Patient does not appear toxic or dehydrated. She is in no acute distress. CBC, CMP, urinalysis are unremarkable. Urinalysis negative for infection and . Acute abdominal series shows no evidence of obstruction. Transvaginal ultrasound shows no evidence of ovarian torsion. I have had a risks and benefits conversation with the patient regarding CT imaging of the abdomen and pelvis at this time. We discussed, based on today's exam and labs that I CAT scan at this time is not necessary and that we should manage her conservatively with repeat abdominal exams if she is still experiencing pain tomorrow. We discussed the risks of radiation to the abdomen and pelvis. We discussed the alternative of close follow-up with their primary care physician for a recheck of the abdomen within 24 hours as well as reasons to return to the emergency department. After this conversation, the patient has elected to avoid CT imaging of the abdomen and pelvis at this time. They have capacity. They have verbalized the importance of close follow-up as well as reasons to return to the emergency department including worsening abdominal pain, fever, persistent vomiting, or any other symptoms that are worrisome to them. 07/28/18 19:37 Discussed findings of normal acute abdominal series, normal labs and urinalysis. Although patient is declining pain medication she states that this is the worst pain that she is felt. No evidence of obstruction on acute abdominal series. Patient is attempting to eat a bag of [employer]mary[id number] during my reevaluation which I feel shows that the patient cannot be in that much pain. 07/28/18 21:49 Patient reevaluated and still is experiencing pain. She continues to decline pain medication. She is in the hospital bed with a friend and constantly on the phone. Has never once during her ED course looked to be in acute pain. Patient has no evidence of torsion on her transvaginal ultrasound. Patient was discharged home with instructions to return in 12-24 hours for repeat abdominal exam if she is still experiencing pain. I recommended that she take 600 mg of Motrin every 6 hours. Patient was evaluated and treated as appropriate for the patient's presenting symptoms and complaint, with consideration of any critical or life threatening conditions that may be associated with their obtained history and exam as noted above. All results were discussed with patient . Patient provided the opportunity to ask questions, and express concerns. Patient was educated on treatments based on their presumed diagnosis as noted above. At this time we will discharge the patient with return precautions and follow-up recommendations. Verbal discharge instructions given a the bedside. Medication warnings reviewed. Patient is in agreement with this plan and has verbalized understanding of return precautions. After careful consideration I feel that that patient can be safely discharged from the emergency department, they were advised to followup with a primary care physician in 2-3 days. Dictation on this chart was performed using voice recognition software and may result in unintended grammatical, spelling, syntax or errors. 07/29/18 11:40 - Vital Signs Vital signs: Temp Pulse Resp BP Pulse Ox 98.5 F 68 16 112/73 100 07/28/18 14:11 07/28/18 22:00 07/28/18 22:00 07/28/18 22:00 07/28/18 22:00 - Laboratory Result Diagrams: 07/28/18 15:34 07/28/18 15:34 Laboratory results interpreted by me: 07/28/18 07/28/18 15:34 15:34 MCH 25.8 L RDW 15.4 H AST 40 H ALT 49 H - Diagnostic Test Radiology reviewed: Image reviewed, Reports reviewed Discharge - Discharge Clinical Impression: Abdominal pain Qualifiers: Abdominal location: left lower quadrant Qualified Code(s): R10.32 - Left lower quadrant pain Condition: Good Disposition: HOME, SELF-CARE Instructions: Abdominal Pain ([facility]) Additional Instructions: Your ultrasound and labs were all normal today. I recommend continuing Motrin every 6 hours and if still experiencing abdominal pain return for repeat abdominal exam in the morning. Referrals: ELÍAS RANDOLPH MD [ACTIVE STAFF] - Follow up tomorrow
--- NOTE | 2018-07-28 18:46 | RADIOLOGY REPORT (SQ) ---
EXAM DESCRIPTION: ACUTE ABDOMEN SERIES COMPLETED DATE/TIME: 07/28/2018 6:36 pm REASON FOR STUDY: llq abd pain COMPARISON: None. NUMBER OF VIEWS: Three views. TECHNIQUE: Frontal chest, supine abdomen and upright/decubitus abdomen radiographic images acquired. LIMITATIONS: None. FINDINGS: CHEST: Lungs clear of infiltrates. FREE AIR: None. No abnormal gas collections. BOWEL GAS PATTERN: Nonobstructive pattern. No dilated loops or air fluid levels. CALCIFICATIONS: No suspicious calcifications. HARDWARE: None in the abdomen. SOFT TISSUES: No gross mass or suggestion of organomegaly. BONES: No acute fracture. No worrisome bone lesions. OTHER: No other significant finding. IMPRESSION: NO RADIOGRAPHIC EVIDENCE FOR ACUTE ABDOMINAL DISEASE. TECHNICAL DOCUMENTATION: JOB ID: [id number] [employer]- All Rights Reserved Reading location - IP/workstation name: [email or web address]
--- NOTE | 2018-07-28 21:45 | RADIOLOGY REPORT (SQ) ---
EXAM DESCRIPTION: US TRANSVAGINAL COMPLETED DATE/TME: 07/28/2018 19:36 CLINICAL HISTORY: 17 years, Female, concern for torsion Findings: Uterus is anteverted and measures 9.3 x 4.2 x 5.3 cm. Endometrium measures 13 mm. Abnormal uterine masses. Cervix measures 2.5 cm. Right ovary measures 2.3 x 1.9 x 1.7 cm. Left ovary measures 3.2 x 2.8 x 2.5 cm. It demonstrates a dominant follicle. No adnexal findings suspicious for adnexal masses. Small amount of free fluid in the cul-de-sac. Vascular flow preserved within both ovaries on color and spectral Doppler imaging. IMPRESSION: No evidence for ovarian torsion.
[2018-07-28 22:11] VITALS: BP 112/73
== END 2018-07-28 22:13 | disposition home or self-care (01) ==
LOC: ER 13:40
DX: R10.32 Left lower quadrant pain (principal); M54.5 Low back pain
CPT/HCPCS: 36415; 74022; 76830; 80053; 81001; 81025; 85025; 99284

== ENCOUNTER → 2020-01-08 | Outpatient (CLI) | payer MEDICAID ==
--- NOTE | 2020-01-08 15:57 | RADIOLOGY REPORT (SQ) ---
EXAM DESCRIPTION: U/S [id number] TRNABD 1GES W/ODOP IMAGES COMPLETED DATE/TIME: 01/08/2020 2:50 pm REASON FOR STUDY: Z34.81 ENCOUNTER FOR SUPRVSN OF NORMAL , FIRST TRIMESTER Z34.81 ENCOUNTE R FOR SUPRVSN OF NORMAL , FIRST TRIM COMPARISON: None. TECHNIQUE: Transabdominal static and realtime grayscale images acquired of the pelvis. Additional se lected spectral and color Doppler images recorded. All images stored on PACs. CG: Not available. CLINICAL DATES: LUKASZ: 08/07/2020. EGA: 9 weeks 5 days LIMITATIONS: None. FINDINGS: FETUS: Single Living intrauterine . ULTRASOUND EGA: 10 weeks 0 days ULTRASOUND LUKASZ: 08/05/2020 EFW: Not applicable less than 20 weeks. CRL: 3.16 cm FHR: 149 beats per minute. SURVEY: No visualized anomalies. AMNIOTIC FLUID: Adequate amount. PLACENTA: Not yet developed due to early gestation. SUBCHORIONIC BLEED: No. SIZE OF BLEED: Not applicable. UTERUS: The uterus measures 11.8 x 7.0 x 6.8 cm. No masses. No anomalies. CERVICAL LENGTH: 2.3 cm Closed. RIGHT ADNEXA: The right ovary measures 2.4 x 1.8 x 1.8 cm. Normal ovary with normal vascular flow. No adnexal free fluid. No adnexal masses. LEFT ADNEXA: The left ovary measures 2.3 x 2.4 x 1.8 cm. Normal ovary with normal vascular flow. No adnexal free fluid. No adnexal masses. FREE FLUID: None. OTHER: No other significant finding. IMPRESSION: LIVING INTRAUTERINE . EGA: 9 weeks 0 days Trimester of : First trimester - 0 to 13 weeks. TECHNICAL DOCUMENTATION: JOB ID: [id number] [employer]- All Rights Reserved rev-11/26 Reading location - IP/workstation name: [email or web address]
== END ==
LOC: RAD 14:14
PROVIDERS: ATTEND Midwife
DX: Z34.81 Encounter for supervision of other normal pregnancy, first trimester (principal); Z3A.09 9 weeks gestation of pregnancy
CPT/HCPCS: 76801

== ENCOUNTER 2020-07-25 19:52 | Outpatient (CLI) | payer MEDICAID ==
[2020-07-25 21:16] LABS: APPEARANCE,URINE SLIGHTLY-CLOUDY; BILIRUBIN,URINE NEGATIVE (NEGATIVE); COLOR,URINE AMBER; GLUCOSE, URINE NEGATIVE (NEGATIVE); KETONES,URINE TRACE mg/dL (NEGATIVE); LEUKOCYTE ESTERASE,URINE SMALL (NEGATIVE); NITRITE,URINE NEGATIVE (NEGATIVE); PROTEIN,URINE 100 mg/dL (NEGATIVE)
[2020-07-25 21:30] LABS: URINE AMPHETAMINES SCREEN NEGATIVE; URINE BARBITURATES SCREEN NEGATIVE; URINE BENZODIAZEPINES SCREEN NEGATIVE; URINE COCAINE SCREEN NEGATIVE; URINE MARIJUANA (THC) SCREEN NEGATIVE; URINE METHADONE SCREEN NEGATIVE; URINE PHENCYCLIDINE SCREEN NEGATIVE
--- NOTE | 2020-07-26 00:52 | RADIOLOGY REPORT (SQ) ---
EXAM DESCRIPTION: U/S PROFILE W/O STRESS [employer]Lex: US BIOPHYSICAL PROFILE WITHOUT NON STRESS TEST CLINICAL HISTORY: 19 years Female; Nonreactive NST TECHNIQUE: Biophysical profile was performed, with limited anatomic survey. COMPARISON: 01/08/2020 FINDINGS: Movement: 2 Tone: 2 Breathin Fluid: 2 Biophysical profile score 8/8 Amniotic fluid index 14.9 cm, adequate position: Vertex Placenta: Left lateral/posterior heart rate 145 BPM IMPRESSION: 1. Biophysical profile score 8/8
== END 2020-07-26 00:43 | disposition home or self-care (01) ==
LOC: LC 19:52
PROVIDERS: ATTEND Obstetrics & Gynecology Gynecology
DX: O47.1 False labor at or after 37 completed weeks of gestation (principal); Z3A.38 38 weeks gestation of pregnancy
CPT/HCPCS: 76819; 80307; 81005; 84112; 94760